=== PATIENT | female | born 1985 | race Caucasian/White ===

== ENCOUNTER 2025-04-11 11:41 | Emergency (ER) | payer OTHER ==
[~2025-04-11] VITALS: Ht 162.6 cm; Wt 53.5 kg
[2025-04-11 12:33] LABS: BASOPHILS % (AUTO) 0.7 % (0.0-2.0); EOSINOPHILS # (AUTO) 0.5 K/uL (0.0-0.7); EOSINOPHILS % (AUTO) 8.1 % (0.0-6.0); HEMATOCRIT 46 % (33-45); HEMOGLOBIN 15.9 g/dL (11.5-14.8); LYMPHOCYTES # (AUTO) 2.7 K/uL (0.8-4.8); LYMPHOCYTES % (AUTO) 40.5 % (20.0-44.0); MEAN CORPUSCULAR HEMOGLOBIN 34 PG (26.0-33.0); MEAN CORPUSCULAR HGB CONC 35 g/dl (31.0-36.0); MEAN CORPUSCULAR VOLUME 98 fL (82-100); MONOCYTES # (AUTO) 0.2 K/uL (0.1-1.30); MONOCYTES % (AUTO) 3.1 % (2.0-12.0); NEUTROPHILS # (AUTO) 3.1 K/uL (1.8-8.9); NEUTROPHILS % (AUTO) 47.6 % (43.0-81.0); PLATELET COUNT (AUTO) 339 K/uL (150-450); RED BLOOD CELL COUNT(AUTO) 4.64 MIL/uL (4.0-5.2); RED CELL DISTRIBUTION WIDTH 13.2 % (11.5-15.0); WHITE BLOOD COUNT (AUTO) 6.6 K/uL (4.3-11.0)
[2025-04-11 12:41] LABS: CALCIUM, SERUM 8.7 mg/dL (8.5-10.1); CARBON DIOXIDE 25 mmol/L (21-32); CHLORIDE 104 mmol/L (98-107); CREATININE 0.8 mg/dL (0.6-1.3); GLUCOSE 110 mg/dL (74-106); POTASSIUM 3.8 mmol/L (3.5-5.1); SODIUM SERUM 142 mmol/L (136-145); UREA NITROGEN, BLOOD 7 mg/dL (7-18)
[2025-04-11 12:45] LABS: INR 0.93 (0.91-1.10); PROTHROMBIN TIME 9.6 SECS (9.2-11.1); SERUM AMMONIA 9 umol/L (11-32)
[2025-04-11 12:49] LABS: ALANINE AMINOTRANSFERASE 33 U/L (12-78); ALBUMIN 4.1 g/dL (3.4-5.0); ALKALINE PHOSPHATASE 97 U/L (46-116); ASPARTATE AMINOTRANSFERASE 47 U/L (15-37); BILIRUBIN,DIRECT 0.2 mg/dL (0.0-0.2); BILIRUBIN,TOTAL 1.2 mg/dL (0.2-1.0); TOTAL PROTEIN, SERUM 8.4 g/dL (6.4-8.2)
[2025-04-11 12:50] LABS: SALICYLATE 0.4 mg/dL (2.8-20.0)
[2025-04-11 12:51] LABS: ACETAMINOPHEN <10 ug/ml (10-30)
[2025-04-11 12:53] LABS: ALCOHOL, BLOOD 509 mg/dL (0-10)
[2025-04-11 13:21] LABS: APPEARANCE,URINE CLEAR (CLEAR); BILIRUBIN,URINE NEGATIVE (NEGATIVE); BLOOD, URINE 1+ Ery/uL (NEGATIVE); COLOR,URINE YELLOW (YELLOW); KETONES,URINE NEGATIVE (NEGATIVE); LEUKOCYTE ESTERASE ,URINE NEGATIVE (NEGATIVE); NITRITE, URINE NEGATIVE (NEGATIVE); PROTEIN,URINE NEGATIVE (NEGATIVE); UGLUCOSE NEGATIVE (NEGATIVE); UROBILINOGEN,URINE 0.2 EU/dL (0.2)
[2025-04-11 13:22] LABS: PREGNANCY TEST URINE QUAL NEGATIVE (NEGATIVE)
[2025-04-11 13:30] LABS: ADD URINE CULTURE NO; BACTERIA,URINE Rare /HPF (None Seen); RBC,URINE 0-2 /HPF (0-2); SQUAMOUS EPITHELIAL CELL,UR 0-2 /HPF (None Seen); WBC,URINE 0-2 /HPF (0-3)
[2025-04-11 13:33] LABS: AMPHETAMINE, URINE NEGATIVE (NEGATIVE); BARBITURATE, URINE NEGATIVE (NEGATIVE); BENZODIAZEPINE, URINE NEGATIVE (NEGATIVE); CANNABINOID, URINE NEGATIVE (NEGATIVE); COCCAINE, URINE NEGATIVE (NEGATIVE); OPIATE, URINE NEGATIVE (NEGATIVE); PHENCYCLIDINE SCREEN,URINE NEGATIVE (NEGATIVE)
[2025-04-11] MEDS: ONDANSETRON 4 MG TAB.RAPDIS SL ONE (13:35)
[2025-04-11] MEDS ORDERED: ONDANSETRON 4 MG TAB.RAPDIS ONE (13:37)
[2025-04-11 18:24] VITALS: BP 113/87; TEMP 98.4; O2SAT 97
== END 2025-04-11 16:48 | disposition left against medical advice (07) ==
LOC: ER 11:44
DX: F10.10 Alcohol abuse, uncomplicated (principal); I49.3 Ventricular premature depolarization; R10.2 Pelvic and perineal pain; R51.9 Headache, unspecified; Z79.899 Other long term (current) drug therapy; Z86.2 Personal history of diseases of the blood and blood-forming organs and certain disorders involving the immune mechanism
CPT/HCPCS: 99285; 93005; 71045; 70450; 82140; 85025; 80048; 87086; 80076; 84703; 81001; 36415; 84443; 84484; 85730; 84702; 80143; 80320; 80307; Q0162; G0480

== ENCOUNTER 2025-09-25 13:49 | Emergency (ER) | payer OTHER ==
[~2025-09-25] VITALS: Ht 160 cm; Wt 51.3 kg
[2025-09-25] MEDS ORDERED: THIAMINE HCL 100 MG TABLET ONE (16:20)
[2025-09-25] MEDS ORDERED: FOLIC ACID 1 MG TABLET ONE (16:20)
[2025-09-25] MEDS ORDERED: LORAZEPAM INJ 2 MG/ML VIAL ONE ×2 (16:27→17:29)
[2025-09-25] MEDS: FOLIC ACID 1 MG TABLET PO ONE (16:38)
[2025-09-25] MEDS: LORAZEPAM INJ 2 MG/ML VIAL IV ONE ×2 (16:38→17:36)
[2025-09-25] MEDS: IV NS 0.9% 1,000 ML BAG IV ONE ×2 (16:38→17:36)
[2025-09-25] MEDS: THIAMINE HCL 100 MG TABLET PO ONE (16:38)
[2025-09-25 16:55] LABS: PLATELET COUNT (AUTO) 199 K/uL (150-450); RED BLOOD CELL COUNT(AUTO) 4.37 MIL/uL (4.0-5.2); RED CELL DISTRIBUTION WIDTH 14.5 % (11.5-15.0); WHITE BLOOD COUNT (AUTO) 5.6 K/uL (4.3-11.0)
[2025-09-25 16:59] LABS: CALCIUM, SERUM 8.5 mg/dL (8.5-10.1); CREATININE 0.6 mg/dL (0.6-1.3); SODIUM SERUM 140.0 mmol/L (136-145); UREA NITROGEN, BLOOD 7.0 mg/dL (7-18)
[2025-09-25 17:06] LABS: ASPARTATE AMINOTRANSFERASE 68.0 U/L (15-37); TOTAL PROTEIN, SERUM 8.5 g/dL (6.4-8.2)
[2025-09-25] MEDS ORDERED: CHLO25CA22 PO (18:12)
[2025-09-25] MEDS ORDERED: CHLORDIAZEPOXIDE HCL 25 MG CAPSULE ONE (18:26)
[2025-09-25] MEDS: CHLORDIAZEPOXIDE HCL 25 MG CAPSULE PO ONE (18:29)
[2025-09-25 18:47] VITALS: BP 118/74; TEMP 98.2; O2SAT 97
== END 2025-09-25 18:48 | disposition home or self-care (01) ==
LOC: ER 14:12
DX: F10.239 Alcohol dependence with withdrawal, unspecified (principal); Y90.9 Presence of alcohol in blood, level not specified
CPT/HCPCS: 99284; 96374; 96361; 96376; 85025; 80048; 83690; 80076; 36415; J2060 ×2; J7030 ×2